=== PATIENT | male | born 1950 | race Hispanic/Latino ===

== ENCOUNTER 2018-10-14 12:36 | Outpatient (RCR) | payer OTHER ==
[~2018-10-14 12:36] MED LIST: AMLODIPINE BESYL5 MG PO; ASPIR 8181 MG PO; ATORVASTATIN CA10 MG PO; ATORVASTATIN CA40 MG PO; BENICAR HCT 401 EACH PO; CIPRO500 MG PO; DOXYCYCLINE HY100 MG PO; FUROSEMIDE20 MG PO; METAGLIP PO; METFORMIN HCL500 MG PO; METOPROLOL SUCC50 MG PO; NIFEDICAL XL30 MG PO; PLAVIX75 MG PO; TYLENOL WITH C1 EACH PO
[2018-10-14] MEDS ORDERED: LIDOCAINE/PRILOCAINE 2.5-2.5% KIT ONE (13:22)
[2018-10-14 13:48] LABS: BASOPHILS % 0.4 % (0.0-1.0); EOSINOPHILS % 0.4 % (0.0-6.0); HEMATOCRIT 30.5 % (38.2-49.6); HEMOGLOBIN 9.9 g/dL (14.0-18.0); LYMPHOCYTES # (AUTO) 1.2 (1.0-3.2); LYMPHOCYTES % 17.6 % (18.0-39.1); MEAN CORPUSCULAR HEMOGLOBIN 31.3 pg (28-32); MEAN CORPUSCULAR HGB CONC 32.5 g/dL (31-35); MEAN CORPUSCULAR VOLUME 96.5 fL (81-99); MONOCYTES # (AUTO) 0.8 (0.2-0.8); MONOCYTES % 11.4 % (4.4-11.3); NEUTROPHILS # (AUTO) 4.8 (2.1-6.9); NEUTROPHILS % 69.9 % (38.7-80.0); PLATELET COUNT 227 x10e3/uL (140-360); RED BLOOD COUNT 3.16 x10e6/uL (4.3-5.7)
[2018-10-14 14:00] LABS: ALBUMIN 3.4 g/dL (3.5-5.0); ALBUMIN/GLOBULIN RATIO 0.9 (0.8-2.0); CALCIUM 9.4 mg/dL (8.4-10.2); CREATININE, SERUM 1.55 mg/dL (0.72-1.25)
[2018-10-14 14:22] LABS: ERYTHROCYTE SEDIMENTATION RATE 107 mm/hr (0-13)
== END 2018-10-15 ==
LOC: WCC 12:36
PROVIDERS: ATTEND Family Medicine Adult Medicine
DX: E11.621 Type 2 diabetes mellitus with foot ulcer (principal); L97.429 Non-pressure chronic ulcer of left heel and midfoot with unspecified severity; I73.9 Peripheral vascular disease, unspecified; I87.2 Venous insufficiency (chronic) (peripheral); R60.0 Localized edema; L84 Corns and callosities; I10 Essential (primary) hypertension; E78.00 Pure hypercholesterolemia, unspecified
CPT/HCPCS: 36415; 80053; 82948; 83036; 84134; 85025; 85651; 86140

== ENCOUNTER 2018-11-02 09:47 | Outpatient (RCR) | payer OTHER ==
[~2018-11-02 09:47] MED LIST changes: +LIDOCAINE/PRILOCAINE 2.5-2.5% KIT ONE
[2018-11-08] MEDS ORDERED: GLIPIZIDE5 MG PO (12:39)
[2018-11-08] MEDS ORDERED: FUROSEMIDE40 MG PO (12:39)
[2018-11-08] MEDS ORDERED: HYDRALAZINE HCL50 MG PO (12:39)
[2018-11-08] MEDS ORDERED: BENICAR HCT 201 EACH PO (12:39)
[2018-11-08] MEDS ORDERED: CLOPIDOGREL75 MG PO (12:39)
[2018-11-08] MEDS ORDERED: CLONIDINE HCL0.1 MG PO (12:39)
[2018-11-08] MEDS ORDERED: CILOSTAZOL100 MG PO (12:39)
[2018-11-08] MEDS ORDERED: AMLODIPINE BESY10 MG PO (12:39)
== END 2018-11-15 ==
LOC: WCC 09:47
PROVIDERS: ATTEND Family Medicine Adult Medicine
DX: E11.621 Type 2 diabetes mellitus with foot ulcer (principal); L97.429 Non-pressure chronic ulcer of left heel and midfoot with unspecified severity; M86.672 Other chronic osteomyelitis, left ankle and foot; I73.9 Peripheral vascular disease, unspecified; I87.2 Venous insufficiency (chronic) (peripheral); M84.478A Pathological fracture, left toe(s), initial encounter for fracture; L84 Corns and callosities; R60.0 Localized edema; I10 Essential (primary) hypertension; B96.89 Other specified bacterial agents as the cause of diseases classified elsewhere; E78.00 Pure hypercholesterolemia, unspecified
CPT/HCPCS: 36415; 82948; 87071; 87075; 87186; 87205

== ENCOUNTER 2018-11-08 11:12 | Observation (INO) | payer OTHER ==
[2018-11-05 14:27] LABS: BASOPHILS % 0.7 % (0.0-1.0); EOSINOPHILS # (AUTO) 0.3 (0.0-0.4); EOSINOPHILS % 4.4 % (0.0-6.0); HEMATOCRIT 32.3 % (38.2-49.6); HEMOGLOBIN 10.4 g/dL (14.0-18.0); MEAN CORPUSCULAR HGB CONC 32.2 g/dL (31-35); MEAN CORPUSCULAR VOLUME 99.4 fL (81-99); MONOCYTES # (AUTO) 0.7 (0.2-0.8); MONOCYTES % 11.4 % (4.4-11.3); NEUTROPHILS # (AUTO) 3.8 (2.1-6.9); PLATELET COUNT 216 x10e3/uL (140-360); RED BLOOD COUNT 3.25 x10e6/uL (4.3-5.7); RED CELL DISTRIBUTION WIDTH 15.7 % (11.7-14.4)
[2018-11-05 14:40] LABS: ALBUMIN 3.4 g/dL (3.5-5.0); CALCIUM 8.9 mg/dL (8.4-10.2); CHOL/HDL RATIO 4.8 (3.9-4.7); CREATININE, SERUM 1.6 mg/dL (0.72-1.25)
[~2018-11-08] VITALS: Ht 170.2 cm; Wt 71.7 kg
[~2018-11-08 11:12] MED LIST changes: -LIDOCAINE/PRILOCAINE 2.5-2.5% KIT ONE
--- OUTSIDE RECORDS SUMMARY | 2018-11-08 11:14 | XMS REPORT ---
Author Author [facility] Address Unknown Phone Unavailable Care Team Providers Care Refueling Rampman Name Role Phone Unavailable Unavailable Problems This patient has no known problems. Allergies, Adverse Reactions, Alerts This patient has no known allergies or adverse reactions. Medications This patient has no known medications.
--- NOTE | 2018-11-08 11:50 | NUR ---
Patient admitted to [facility] with son Cameronlina Siddiqi at bedside. Patient awake, alert, and oriented x3. Respirations even and unlabored on room air. No distress noted. Attractions Associate offered. Patient request geovanni Sol to translate into German. Patient prepped in usual manner for procedure.
[2018-11-08 11:54] VITALS: BP 133/66
[2018-11-08] MEDS ORDERED: ALPRAZOLAM 0.5 MG TAB ONE (12:01)
[2018-11-08] MEDS ORDERED: DIPHENHYDRAMINE HCL 25 MG CAP ONE (12:02)
[2018-11-08] MEDS ORDERED: GLIPIZIDE5 MG PO (12:39)
[2018-11-08] MEDS ORDERED: CLONIDINE HCL0.1 MG PO (12:39)
[2018-11-08] MEDS ORDERED: FUROSEMIDE40 MG PO (12:39)
[2018-11-08] MEDS ORDERED: CILOSTAZOL100 MG PO (12:39)
[2018-11-08] MEDS ORDERED: CLOPIDOGREL75 MG PO (12:39)
[2018-11-08] MEDS ORDERED: AMLODIPINE BESY10 MG PO (12:39)
[2018-11-08] MEDS ORDERED: HYDRALAZINE HCL50 MG PO (12:39)
[2018-11-08] MEDS ORDERED: BENICAR HCT 201 EACH PO (12:39)
[2018-11-08] MEDS ORDERED: LIDOCAINE HCL 2% LOCAL 20 ML VIAL ONE (14:50)
[2018-11-08] MEDS ORDERED: HEPARIN SOD/SOD CHLORIDE 2,000 ML ONE (14:50)
[2018-11-08] MEDS ORDERED: SODIUM CHLORIDE 0.9% 1000ML 1,000 ML ONE ×2 (14:51→14:57)
[2018-11-08] MEDS ORDERED: IOPAMIDOL 300MG/ML 100 ML INFUS..BTL IV ONE (14:51)
[2018-11-08] MEDS ORDERED: VERAPAMIL HCL 2.5 MG/ML 2 ML VIAL ONE (14:56)
[2018-11-08] MEDS ORDERED: MIDAZOLAM HCL 2 MG/2 ML VIAL ONE (14:56)
[2018-11-08] MEDS ORDERED: FENTANYL CITRATE/PF 100MCG/2 ML INJ ONE (14:57)
[2018-11-08] MEDS ORDERED: PROTAMINE SULFATE 10 MG/ML 5 ML VIAL ONE ×2 (15:21→15:22)
[2018-11-08 16:21] VITALS: BP 138/62
--- NOTE | 2018-11-08 16:25 | Operative Report ---
DATE OF PROCEDURE: November 08, 2018 INDICATIONS: Peripheral arterial disease with ulceration of the right lower extremity. PROCEDURES PERFORMED: 1. Abdominal aortogram. 2. Unilateral extremity angiogram with third-order catheter placement from the left femoral artery to the right superficial femoral artery. 3. Additional 3rd-order catheter placement from the left femoral artery to the right anterior tibial artery with additional vessel angiogram. 4. Atherectomy and drug-coated balloon angioplasty of the right femoral artery. 5. Secondary thrombectomy of the right femoral artery. COMPLICATIONS: None. RECOMMENDATIONS: Medical therapy including wound care. Access obtained in the left femoral artery. A 6-Czech sheath was placed. Abdominal aortogram demonstrated moderate plaque without critical stenosis, occlusion of the iliac and abdominal aorta and the right femoral artery proximally appeared widely patent. Distal vessel could not be seen. The catheter was then advanced from the left femoral artery to the right superficial femoral artery confirming 90% tandem stenosis of the right distal femoral artery. Infrapopliteal vessels were not well seen. The catheter was then advanced from the left femoral artery to the right anterior tibial artery confirming 2 vessel runoff via the anterior tibial and peroneal artery. The peroneal artery was diffusely diseased. Posterior tibial artery was occluded. A decision was made to intervene on the right femoral artery. The patient received 8000 units of intravenous heparin. The sheath was exchanged to a 45 cm 6-Czech sheath advanced from the left femoral artery to the right superficial femoral artery. Lesion was crossed using a ViperWire. Orbital atherectomy using a 2 mm was performed. Large amounts of visible thrombus necessitating manual aspiration thrombectomy following which a 6 x 150 mm Lutonix drug-eluting balloon was deployed. Excellent end result. Two-vessel runoff less than 10% residual stenosis. No complications. Left groin sheath removed under manual pressure. Patient discharged home same day. Job#: [id number]
--- NOTE | 2018-11-08 16:30 | NUR ---
PT ARRIVED VIA STRETCHER, RESP EVEN AND UNLABORED AT THIS TIME, PT GROIN SITE CLEAN AND INTACT, NO HEMATOMA NO REDNESS TO SITE, NO C/O PAIN WHEN ASKED. PT ORIENTED TO ROOM AND CALL LIGHT. PT TO LIE SUPINE UNTIL 1935.
[2018-11-08 17:16] VITALS: BP 133/66
--- NOTE | 2018-11-08 19:19 | NUR ---
REPORT GIVEN TO ONCOMING NURSE
== END 2018-11-08 20:50 | disposition home or self-care (01) ==
LOC: CATH LAB 11:12 → CATH LAB V 16:09 → IMCU 16:31
PROVIDERS: ADMIT Internal Medicine Interventional Cardiology; ATTEND Internal Medicine Interventional Cardiology
DX: I70.4 Atherosclerosis of autologous vein bypass graft(s) of the extremities (principal); R00.0 Tachycardia, unspecified; E11.9 Type 2 diabetes mellitus without complications; I10 Essential (primary) hypertension; F17.210 Nicotine dependence, cigarettes, uncomplicated; Z79.84 Long term (current) use of oral hypoglycemic drugs; Z79.82 Long term (current) use of aspirin
CPT/HCPCS: 36415 ×2; 37186; 37225; 75625; 75710; 80053; 80061; 82948; 85025; C1724; C1725; C1769; C1887; C2623; G0378; J2001; J2250; J2720; J7030; Q9967; 36247

== ENCOUNTER → 2018-12-16 | Outpatient (RCR) | payer OTHER ==
[~2018-12-16] MED LIST changes: +AMLODIPINE BESY10 MG PO; +BENICAR HCT 201 EACH PO; +CILOSTAZOL100 MG PO; +CLONIDINE HCL0.1 MG PO; +CLOPIDOGREL75 MG PO; +FUROSEMIDE40 MG PO; +GLIPIZIDE5 MG PO; +HYDRALAZINE HCL50 MG PO; +LIDOCAINE/PRILOCAINE 2.5-2.5% KIT ONE
== END ==
LOC: WCC 12-09 11:28
PROVIDERS: ATTEND Family Medicine Adult Medicine
DX: T81.89XA Other complications of procedures, not elsewhere classified, initial encounter (principal); M96.89 Other intraoperative and postprocedural complications and disorders of the musculoskeletal system; M86.672 Other chronic osteomyelitis, left ankle and foot; E11.621 Type 2 diabetes mellitus with foot ulcer; L97.421 Non-pressure chronic ulcer of left heel and midfoot limited to breakdown of skin; L97.429 Non-pressure chronic ulcer of left heel and midfoot with unspecified severity; R60.0 Localized edema; B96.89 Other specified bacterial agents as the cause of diseases classified elsewhere; M84.478A Pathological fracture, left toe(s), initial encounter for fracture; I73.9 Peripheral vascular disease, unspecified; I87.2 Venous insufficiency (chronic) (peripheral); L84 Corns and callosities; I10 Essential (primary) hypertension; E78.00 Pure hypercholesterolemia, unspecified

== ENCOUNTER 2018-12-23 10:58 | Outpatient (RCR) | payer MEDICARE ==
[~2018-12-23 10:58] MED LIST changes: -LIDOCAINE/PRILOCAINE 2.5-2.5% KIT ONE
[2018-12-23] MEDS ORDERED: LIDOCAINE/PRILOCAINE 2.5-2.5% KIT ONE (15:12)
[2018-12-30] MEDS ORDERED: LIDOCAINE/PRILOCAINE 2.5-2.5% KIT ONE (15:23)
== END 2019-01-13 ==
LOC: WCC 10:58
PROVIDERS: ATTEND Family Medicine Adult Medicine
DX: T81.89XA Other complications of procedures, not elsewhere classified, initial encounter (principal); M96.89 Other intraoperative and postprocedural complications and disorders of the musculoskeletal system; M86.672 Other chronic osteomyelitis, left ankle and foot; E11.621 Type 2 diabetes mellitus with foot ulcer; L97.421 Non-pressure chronic ulcer of left heel and midfoot limited to breakdown of skin; I73.9 Peripheral vascular disease, unspecified; I87.2 Venous insufficiency (chronic) (peripheral); I10 Essential (primary) hypertension; M84.478A Pathological fracture, left toe(s), initial encounter for fracture; B96.89 Other specified bacterial agents as the cause of diseases classified elsewhere; E78.00 Pure hypercholesterolemia, unspecified

== ENCOUNTER 2019-02-10 09:14 | Outpatient (RCR) | payer MEDICARE ==
[~2019-02-10 09:14] MED LIST changes: +LIDOCAINE/PRILOCAINE 2.5-2.5% KIT ONE
[2019-02-10] MEDS ORDERED: LIDOCAINE/PRILOCAINE 2.5-2.5% KIT ONE (12:53)
== END 2019-02-13 ==
LOC: WCC 09:14
PROVIDERS: ATTEND Family Medicine Adult Medicine
DX: T81.89XA Other complications of procedures, not elsewhere classified, initial encounter (principal); M96.89 Other intraoperative and postprocedural complications and disorders of the musculoskeletal system; M86.672 Other chronic osteomyelitis, left ankle and foot; E11.621 Type 2 diabetes mellitus with foot ulcer; L97.421 Non-pressure chronic ulcer of left heel and midfoot limited to breakdown of skin; I73.9 Peripheral vascular disease, unspecified; I87.2 Venous insufficiency (chronic) (peripheral); I10 Essential (primary) hypertension; B96.89 Other specified bacterial agents as the cause of diseases classified elsewhere; E78.00 Pure hypercholesterolemia, unspecified; M84.478A Pathological fracture, left toe(s), initial encounter for fracture

== ENCOUNTER 2019-03-10 11:32 | Outpatient (RCR) | payer MEDICARE ==
[2019-03-10] MEDS ORDERED: LIDOCAINE/PRILOCAINE 2.5-2.5% KIT ONE (18:01)
== END 2019-03-15 ==
LOC: WCC 11:32
PROVIDERS: ATTEND Family Medicine Adult Medicine
DX: T81.89XA Other complications of procedures, not elsewhere classified, initial encounter (principal); M96.89 Other intraoperative and postprocedural complications and disorders of the musculoskeletal system; M86.672 Other chronic osteomyelitis, left ankle and foot; E11.621 Type 2 diabetes mellitus with foot ulcer; L97.421 Non-pressure chronic ulcer of left heel and midfoot limited to breakdown of skin; L03.039 Cellulitis of unspecified toe; S91.202A Unspecified open wound of left great toe with damage to nail, initial encounter; I73.9 Peripheral vascular disease, unspecified; I87.2 Venous insufficiency (chronic) (peripheral); M84.478A Pathological fracture, left toe(s), initial encounter for fracture; I10 Essential (primary) hypertension; B96.89 Other specified bacterial agents as the cause of diseases classified elsewhere; E78.00 Pure hypercholesterolemia, unspecified; X58.XXXA Exposure to other specified factors, initial encounter
CPT/HCPCS: 87071; 87075; 87205

== ENCOUNTER 2019-03-24 10:00 | Outpatient (RCR) | payer MEDICARE ==
[~2019-03-24 10:00] MED LIST changes: -LIDOCAINE/PRILOCAINE 2.5-2.5% KIT ONE
== END 2019-04-15 ==
LOC: WCC 10:00
PROVIDERS: ATTEND Family Medicine Adult Medicine
DX: T81.89XA Other complications of procedures, not elsewhere classified, initial encounter (principal); M96.89 Other intraoperative and postprocedural complications and disorders of the musculoskeletal system; M86.672 Other chronic osteomyelitis, left ankle and foot; E11.621 Type 2 diabetes mellitus with foot ulcer; L97.421 Non-pressure chronic ulcer of left heel and midfoot limited to breakdown of skin; S91.202A Unspecified open wound of left great toe with damage to nail, initial encounter; I73.9 Peripheral vascular disease, unspecified; I87.2 Venous insufficiency (chronic) (peripheral); I10 Essential (primary) hypertension; X58.XXXA Exposure to other specified factors, initial encounter; M84.478A Pathological fracture, left toe(s), initial encounter for fracture; E78.00 Pure hypercholesterolemia, unspecified; B96.89 Other specified bacterial agents as the cause of diseases classified elsewhere
CPT/HCPCS: 36415; 82948; 87071; 87075; 87186; 87205

== ENCOUNTER 2019-05-03 09:05 | Outpatient (RCR) | payer MEDICARE | END 2019-05-15 | LOC: WCC 09:05 | PROVIDERS: ATTEND Family Medicine Adult Medicine | DX: T81.89XA Other complications of procedures, not elsewhere classified, initial encounter (principal); M96.89 Other intraoperative and postprocedural complications and disorders of the musculoskeletal system; M86.672 Other chronic osteomyelitis, left ankle and foot; E11.621 Type 2 diabetes mellitus with foot ulcer; L97.421 Non-pressure chronic ulcer of left heel and midfoot limited to breakdown of skin; S91.202A Unspecified open wound of left great toe with damage to nail, initial encounter; M84.478A Pathological fracture, left toe(s), initial encounter for fracture; I87.2 Venous insufficiency (chronic) (peripheral); I73.9 Peripheral vascular disease, unspecified; X58.XXXA Exposure to other specified factors, initial encounter; I10 Essential (primary) hypertension; E78.00 Pure hypercholesterolemia, unspecified; B96.89 Other specified bacterial agents as the cause of diseases classified elsewhere | CPT/HCPCS: 36415; 82948 ==

== ENCOUNTER → 2019-05-24 | Outpatient (CLI) | payer MEDICARE ==
[~2019-05-24] MED LIST changes: +LIDOCAINE/PRILOCAINE 2.5-2.5% KIT ONE; +MINERAL OIL/PETROLAT/GLYCERI 2OZ CRM ONE
== END ==
LOC: WCC 15:26
PROVIDERS: ATTEND Family Medicine Adult Medicine
DX: T81.89XA Other complications of procedures, not elsewhere classified, initial encounter (principal); M96.89 Other intraoperative and postprocedural complications and disorders of the musculoskeletal system; M86.672 Other chronic osteomyelitis, left ankle and foot; E11.621 Type 2 diabetes mellitus with foot ulcer; L97.421 Non-pressure chronic ulcer of left heel and midfoot limited to breakdown of skin; S91.202A Unspecified open wound of left great toe with damage to nail, initial encounter; I87.2 Venous insufficiency (chronic) (peripheral); S90.822A Blister (nonthermal), left foot, initial encounter; I73.9 Peripheral vascular disease, unspecified; M84.478A Pathological fracture, left toe(s), initial encounter for fracture; I10 Essential (primary) hypertension; B96.89 Other specified bacterial agents as the cause of diseases classified elsewhere; E78.00 Pure hypercholesterolemia, unspecified; X58.XXXA Exposure to other specified factors, initial encounter

== ENCOUNTER 2019-06-14 11:24 | Outpatient (RCR) | payer MEDICARE ==
[~2019-06-14 11:24] MED LIST changes: -LIDOCAINE/PRILOCAINE 2.5-2.5% KIT ONE; -MINERAL OIL/PETROLAT/GLYCERI 2OZ CRM ONE
== END 2019-06-15 ==
LOC: WCC 11:24
PROVIDERS: ATTEND Family Medicine Adult Medicine
DX: T81.89XA Other complications of procedures, not elsewhere classified, initial encounter (principal); M96.89 Other intraoperative and postprocedural complications and disorders of the musculoskeletal system; M86.672 Other chronic osteomyelitis, left ankle and foot; E11.621 Type 2 diabetes mellitus with foot ulcer; L97.421 Non-pressure chronic ulcer of left heel and midfoot limited to breakdown of skin; S91.202A Unspecified open wound of left great toe with damage to nail, initial encounter; S90.822A Blister (nonthermal), left foot, initial encounter; I73.9 Peripheral vascular disease, unspecified; I87.2 Venous insufficiency (chronic) (peripheral); M84.478A Pathological fracture, left toe(s), initial encounter for fracture; I10 Essential (primary) hypertension; B96.89 Other specified bacterial agents as the cause of diseases classified elsewhere; E78.00 Pure hypercholesterolemia, unspecified; X58.XXXA Exposure to other specified factors, initial encounter
CPT/HCPCS: 87071; 87075; 87186; 87205

== ENCOUNTER 2019-07-05 10:56 | Outpatient (RCR) | payer MEDICARE ==
[2019-07-05] MEDS ORDERED: LIDOCAINE/PRILOCAINE 2.5-2.5% KIT ONE (16:58)
== END 2019-07-16 ==
LOC: WCC 10:56
PROVIDERS: ATTEND Family Medicine Adult Medicine
DX: E11.621 Type 2 diabetes mellitus with foot ulcer (principal); M96.89 Other intraoperative and postprocedural complications and disorders of the musculoskeletal system; M86.672 Other chronic osteomyelitis, left ankle and foot; S91.202A Unspecified open wound of left great toe with damage to nail, initial encounter; I87.2 Venous insufficiency (chronic) (peripheral); I73.9 Peripheral vascular disease, unspecified; M84.478A Pathological fracture, left toe(s), initial encounter for fracture; I10 Essential (primary) hypertension; B96.89 Other specified bacterial agents as the cause of diseases classified elsewhere; E78.00 Pure hypercholesterolemia, unspecified; X58.XXXA Exposure to other specified factors, initial encounter
CPT/HCPCS: 36415; 82948

== ENCOUNTER 2019-08-11 09:11 | Outpatient (RCR) | payer MEDICARE ==
[~2019-08-11 09:11] MED LIST changes: +LIDOCAINE/PRILOCAINE 2.5-2.5% KIT ONE
[2019-08-11] MEDS ORDERED: LIDOCAINE/PRILOCAINE 2.5-2.5% KIT ONE (14:36)
== END 2019-08-15 ==
LOC: WCC 09:11
PROVIDERS: ATTEND Family Medicine Adult Medicine
DX: E11.621 Type 2 diabetes mellitus with foot ulcer (principal); M86.672 Other chronic osteomyelitis, left ankle and foot; M96.89 Other intraoperative and postprocedural complications and disorders of the musculoskeletal system; S91.202A Unspecified open wound of left great toe with damage to nail, initial encounter; I73.9 Peripheral vascular disease, unspecified; I87.2 Venous insufficiency (chronic) (peripheral); M84.478A Pathological fracture, left toe(s), initial encounter for fracture; I10 Essential (primary) hypertension; A49.01 Methicillin susceptible Staphylococcus aureus infection, unspecified site; B96.89 Other specified bacterial agents as the cause of diseases classified elsewhere; E78.00 Pure hypercholesterolemia, unspecified; X58.XXXA Exposure to other specified factors, initial encounter

== ENCOUNTER → 2019-09-15 | Outpatient (RCR) | payer MEDICARE | LOC: WCC 13:54 | PROVIDERS: ATTEND Family Medicine Adult Medicine | DX: E11.621 Type 2 diabetes mellitus with foot ulcer (principal); E11.22 Type 2 diabetes mellitus with diabetic chronic kidney disease; M96.89 Other intraoperative and postprocedural complications and disorders of the musculoskeletal system; M86.672 Other chronic osteomyelitis, left ankle and foot; S91.202A Unspecified open wound of left great toe with damage to nail, initial encounter; I73.9 Peripheral vascular disease, unspecified; I87.2 Venous insufficiency (chronic) (peripheral); N18.3 Chronic kidney disease, stage 3 (moderate); I10 Essential (primary) hypertension; A49.01 Methicillin susceptible Staphylococcus aureus infection, unspecified site; B96.89 Other specified bacterial agents as the cause of diseases classified elsewhere; E78.00 Pure hypercholesterolemia, unspecified; M84.478A Pathological fracture, left toe(s), initial encounter for fracture; X58.XXXA Exposure to other specified factors, initial encounter | CPT/HCPCS: 36415; 82948 ==

== ENCOUNTER 2019-10-11 09:50 | Outpatient (RCR) | payer MEDICARE ==
[2019-10-11] MEDS ORDERED: LIDOCAINE/PRILOCAINE 2.5-2.5% KIT ONE (15:01)
== END 2019-10-15 ==
LOC: WCC 09:50
PROVIDERS: ATTEND Family Medicine Adult Medicine
DX: E11.22 Type 2 diabetes mellitus with diabetic chronic kidney disease (principal); E11.621 Type 2 diabetes mellitus with foot ulcer; M96.89 Other intraoperative and postprocedural complications and disorders of the musculoskeletal system; M84.478A Pathological fracture, left toe(s), initial encounter for fracture; I73.9 Peripheral vascular disease, unspecified; I87.2 Venous insufficiency (chronic) (peripheral); N18.3 Chronic kidney disease, stage 3 (moderate); I10 Essential (primary) hypertension; B96.89 Other specified bacterial agents as the cause of diseases classified elsewhere; E78.00 Pure hypercholesterolemia, unspecified; X58.XXXA Exposure to other specified factors, initial encounter
CPT/HCPCS: 36415; 82948; 87071; 87186; 87205

== ENCOUNTER 2020-01-13 13:43 | Outpatient (RCR) | payer MEDICARE ==
[~2020-01-13 13:43] MED LIST changes: -LIDOCAINE/PRILOCAINE 2.5-2.5% KIT ONE; +MINERAL OIL/PETROLAT/GLYCERI 6OZ BTL ONE
== END 2020-01-14 ==
LOC: WCC 13:43
PROVIDERS: ATTEND Internal Medicine Infectious Disease
DX: T86.821 Skin graft (allograft) (autograft) failure (principal); M96.89 Other intraoperative and postprocedural complications and disorders of the musculoskeletal system; E11.22 Type 2 diabetes mellitus with diabetic chronic kidney disease; E11.621 Type 2 diabetes mellitus with foot ulcer; B96.89 Other specified bacterial agents as the cause of diseases classified elsewhere; I73.9 Peripheral vascular disease, unspecified; I87.2 Venous insufficiency (chronic) (peripheral); M84.478A Pathological fracture, left toe(s), initial encounter for fracture; N18.3 Chronic kidney disease, stage 3 (moderate); I10 Essential (primary) hypertension; E78.00 Pure hypercholesterolemia, unspecified; X58.XXXA Exposure to other specified factors, initial encounter; Z01.810 Encounter for preprocedural cardiovascular examination; Z01.811 Encounter for preprocedural respiratory examination; Z89.412 Acquired absence of left great toe
CPT/HCPCS: 36415; 82948

== ENCOUNTER 2020-02-07 12:28 | Outpatient (RCR) | payer MEDICARE ==
[~2020-02-07 12:28] MED LIST changes: -MINERAL OIL/PETROLAT/GLYCERI 6OZ BTL ONE
== END 2020-02-14 ==
LOC: WCC 12:28
PROVIDERS: ATTEND Family Medicine Adult Medicine
DX: T86.821 Skin graft (allograft) (autograft) failure (principal); E11.22 Type 2 diabetes mellitus with diabetic chronic kidney disease; M96.89 Other intraoperative and postprocedural complications and disorders of the musculoskeletal system; E11.621 Type 2 diabetes mellitus with foot ulcer; N18.3 Chronic kidney disease, stage 3 (moderate); I87.2 Venous insufficiency (chronic) (peripheral); I73.9 Peripheral vascular disease, unspecified; M84.478A Pathological fracture, left toe(s), initial encounter for fracture; I10 Essential (primary) hypertension; X58.XXXA Exposure to other specified factors, initial encounter; E78.00 Pure hypercholesterolemia, unspecified; B96.89 Other specified bacterial agents as the cause of diseases classified elsewhere; Z01.810 Encounter for preprocedural cardiovascular examination; Z01.811 Encounter for preprocedural respiratory examination

== ENCOUNTER 2020-03-13 11:44 | Outpatient (RCR) | payer MEDICARE | END 2020-03-15 | LOC: WCC 11:44 | PROVIDERS: ATTEND Family Medicine Adult Medicine | DX: T86.821 Skin graft (allograft) (autograft) failure (principal); M96.89 Other intraoperative and postprocedural complications and disorders of the musculoskeletal system; E11.22 Type 2 diabetes mellitus with diabetic chronic kidney disease; E11.621 Type 2 diabetes mellitus with foot ulcer; I73.9 Peripheral vascular disease, unspecified; I87.2 Venous insufficiency (chronic) (peripheral); M84.478A Pathological fracture, left toe(s), initial encounter for fracture; B96.89 Other specified bacterial agents as the cause of diseases classified elsewhere; N18.3 Chronic kidney disease, stage 3 (moderate); I10 Essential (primary) hypertension; E78.00 Pure hypercholesterolemia, unspecified; X58.XXXA Exposure to other specified factors, initial encounter; Z01.810 Encounter for preprocedural cardiovascular examination; Z01.811 Encounter for preprocedural respiratory examination | CPT/HCPCS: 36415; 82948 ==

== ENCOUNTER 2020-04-03 13:13 | Outpatient (RCR) | payer MEDICARE | END 2020-04-15 | LOC: WCC 13:13 | PROVIDERS: ATTEND Family Medicine Adult Medicine | DX: T86.821 Skin graft (allograft) (autograft) failure (principal); E11.22 Type 2 diabetes mellitus with diabetic chronic kidney disease; E11.621 Type 2 diabetes mellitus with foot ulcer; M96.89 Other intraoperative and postprocedural complications and disorders of the musculoskeletal system; I73.9 Peripheral vascular disease, unspecified; I87.2 Venous insufficiency (chronic) (peripheral); N18.3 Chronic kidney disease, stage 3 (moderate); M84.478A Pathological fracture, left toe(s), initial encounter for fracture; I10 Essential (primary) hypertension; B96.89 Other specified bacterial agents as the cause of diseases classified elsewhere; E78.00 Pure hypercholesterolemia, unspecified; X58.XXXA Exposure to other specified factors, initial encounter; Z01.810 Encounter for preprocedural cardiovascular examination; Z01.811 Encounter for preprocedural respiratory examination ==

== ENCOUNTER → 2020-05-15 | Outpatient (RCR) | payer MEDICARE | LOC: WCC 04-24 10:59 | PROVIDERS: ATTEND Family Medicine Adult Medicine | DX: T86.821 Skin graft (allograft) (autograft) failure (principal); M96.89 Other intraoperative and postprocedural complications and disorders of the musculoskeletal system; E11.22 Type 2 diabetes mellitus with diabetic chronic kidney disease; E11.621 Type 2 diabetes mellitus with foot ulcer; I73.9 Peripheral vascular disease, unspecified; I87.2 Venous insufficiency (chronic) (peripheral); M84.478A Pathological fracture, left toe(s), initial encounter for fracture; B96.89 Other specified bacterial agents as the cause of diseases classified elsewhere; N18.3 Chronic kidney disease, stage 3 (moderate); I10 Essential (primary) hypertension; E78.00 Pure hypercholesterolemia, unspecified; X58.XXXA Exposure to other specified factors, initial encounter; Z01.810 Encounter for preprocedural cardiovascular examination; Z01.811 Encounter for preprocedural respiratory examination ==

== ENCOUNTER 2020-06-05 09:54 | Outpatient (RCR) | payer MEDICARE | END 2020-06-15 | LOC: WCC 09:54 | PROVIDERS: ATTEND Family Medicine Adult Medicine | DX: T86.821 Skin graft (allograft) (autograft) failure (principal); M96.89 Other intraoperative and postprocedural complications and disorders of the musculoskeletal system; E11.22 Type 2 diabetes mellitus with diabetic chronic kidney disease; E11.621 Type 2 diabetes mellitus with foot ulcer; I73.9 Peripheral vascular disease, unspecified; I87.2 Venous insufficiency (chronic) (peripheral); N18.3 Chronic kidney disease, stage 3 (moderate); I10 Essential (primary) hypertension; M84.478A Pathological fracture, left toe(s), initial encounter for fracture; B96.89 Other specified bacterial agents as the cause of diseases classified elsewhere; E78.00 Pure hypercholesterolemia, unspecified; X58.XXXA Exposure to other specified factors, initial encounter; Z01.810 Encounter for preprocedural cardiovascular examination; Z01.811 Encounter for preprocedural respiratory examination ==

== ENCOUNTER 2020-07-03 10:44 | Outpatient (RCR) | payer MEDICARE ==
[~2020-07-03 10:44] MED LIST changes: +LIDOCAINE VISC 2% SOLN 15 ML UDC ONE; +MINERAL OIL/PETROLAT/GLYCERI 6OZ BTL ONE
== END 2020-07-16 ==
LOC: WCC 10:44
PROVIDERS: ATTEND Family Medicine Adult Medicine
DX: T86.821 Skin graft (allograft) (autograft) failure (principal); E11.22 Type 2 diabetes mellitus with diabetic chronic kidney disease; E11.621 Type 2 diabetes mellitus with foot ulcer; M96.89 Other intraoperative and postprocedural complications and disorders of the musculoskeletal system; I73.9 Peripheral vascular disease, unspecified; I87.2 Venous insufficiency (chronic) (peripheral); N18.3 Chronic kidney disease, stage 3 (moderate); M84.478A Pathological fracture, left toe(s), initial encounter for fracture; I10 Essential (primary) hypertension; B96.89 Other specified bacterial agents as the cause of diseases classified elsewhere; E78.00 Pure hypercholesterolemia, unspecified; X58.XXXA Exposure to other specified factors, initial encounter; Z01.810 Encounter for preprocedural cardiovascular examination; Z01.811 Encounter for preprocedural respiratory examination

== ENCOUNTER 2020-08-14 09:41 | Outpatient (RCR) | payer MEDICARE ==
[~2020-08-14 09:41] MED LIST changes: -LIDOCAINE VISC 2% SOLN 15 ML UDC ONE; +LIDOCAINE/PRILOCAINE 2.5-2.5% KIT ONE; -MINERAL OIL/PETROLAT/GLYCERI 6OZ BTL ONE; +MUPIROCIN 2% OINT 22 GM TUBE ONE
[2020-08-14] MEDS ORDERED: AMMONIUM LACTATE 12% LOTION 225GM BTL ONE (16:36)
[2020-08-14] MEDS ORDERED: LIDOCAINE VISC 2% SOLN 15 ML UDC ONE (16:36)
== END 2020-08-15 ==
LOC: WCC 09:41
PROVIDERS: ATTEND Family Medicine Adult Medicine
DX: T86.821 Skin graft (allograft) (autograft) failure (principal); E11.22 Type 2 diabetes mellitus with diabetic chronic kidney disease; E11.621 Type 2 diabetes mellitus with foot ulcer; I73.9 Peripheral vascular disease, unspecified; I87.2 Venous insufficiency (chronic) (peripheral); B96.89 Other specified bacterial agents as the cause of diseases classified elsewhere; N18.3 Chronic kidney disease, stage 3 (moderate); M84.478A Pathological fracture, left toe(s), initial encounter for fracture; I10 Essential (primary) hypertension; E78.00 Pure hypercholesterolemia, unspecified; M96.89 Other intraoperative and postprocedural complications and disorders of the musculoskeletal system; X58.XXXA Exposure to other specified factors, initial encounter; Z01.810 Encounter for preprocedural cardiovascular examination; Z01.811 Encounter for preprocedural respiratory examination
CPT/HCPCS: 87071; 87075; 87205

== ENCOUNTER 2020-09-11 09:58 | Outpatient (RCR) | payer MEDICARE ==
[~2020-09-11 09:58] MED LIST changes: +MINERAL OIL/PETROLAT/GLYCERI 6OZ BTL ONE; -MUPIROCIN 2% OINT 22 GM TUBE ONE
== END 2020-09-15 ==
LOC: WCC 09:58
PROVIDERS: ATTEND Family Medicine Adult Medicine
DX: T86.821 Skin graft (allograft) (autograft) failure (principal); M96.89 Other intraoperative and postprocedural complications and disorders of the musculoskeletal system; E11.22 Type 2 diabetes mellitus with diabetic chronic kidney disease; E11.621 Type 2 diabetes mellitus with foot ulcer; I73.9 Peripheral vascular disease, unspecified; I87.2 Venous insufficiency (chronic) (peripheral); N18.30 Chronic kidney disease, stage 3 unspecified; L84 Corns and callosities; M84.478A Pathological fracture, left toe(s), initial encounter for fracture; I10 Essential (primary) hypertension; B96.89 Other specified bacterial agents as the cause of diseases classified elsewhere; E78.00 Pure hypercholesterolemia, unspecified; X58.XXXA Exposure to other specified factors, initial encounter; Z01.810 Encounter for preprocedural cardiovascular examination; Z01.811 Encounter for preprocedural respiratory examination
CPT/HCPCS: 36415; 82948

== ENCOUNTER 2020-10-09 15:09 | Outpatient (RCR) | payer MEDICARE ==
[~2020-10-09 15:09] MED LIST changes: +LIDOCAINE VISC 2% SOLN 15 ML UDC ONE; -MINERAL OIL/PETROLAT/GLYCERI 6OZ BTL ONE
== END 2020-10-15 ==
LOC: WCC 15:09
PROVIDERS: ATTEND Family Medicine Adult Medicine
DX: T86.821 Skin graft (allograft) (autograft) failure (principal); M96.89 Other intraoperative and postprocedural complications and disorders of the musculoskeletal system; E11.22 Type 2 diabetes mellitus with diabetic chronic kidney disease; E11.621 Type 2 diabetes mellitus with foot ulcer; I87.2 Venous insufficiency (chronic) (peripheral); I73.9 Peripheral vascular disease, unspecified; M84.478A Pathological fracture, left toe(s), initial encounter for fracture; N18.30 Chronic kidney disease, stage 3 unspecified; I10 Essential (primary) hypertension; B96.89 Other specified bacterial agents as the cause of diseases classified elsewhere; E78.00 Pure hypercholesterolemia, unspecified; X58.XXXA Exposure to other specified factors, initial encounter; Z01.810 Encounter for preprocedural cardiovascular examination; Z01.811 Encounter for preprocedural respiratory examination
CPT/HCPCS: 36415; 82948

== ENCOUNTER 2020-11-13 11:17 | Outpatient (RCR) | payer MEDICARE ==
[2020-11-13] MEDS ORDERED: LIDOCAINE/PRILOCAINE 2.5-2.5% KIT ONE ×2 (13:48→14:15)
== END 2020-11-15 ==
LOC: WCC 11:17
PROVIDERS: ATTEND Family Medicine Adult Medicine
DX: T86.821 Skin graft (allograft) (autograft) failure (principal); M96.89 Other intraoperative and postprocedural complications and disorders of the musculoskeletal system; E11.22 Type 2 diabetes mellitus with diabetic chronic kidney disease; E11.621 Type 2 diabetes mellitus with foot ulcer; R60.0 Localized edema; I73.9 Peripheral vascular disease, unspecified; I87.2 Venous insufficiency (chronic) (peripheral); M84.478A Pathological fracture, left toe(s), initial encounter for fracture; N18.30 Chronic kidney disease, stage 3 unspecified; I10 Essential (primary) hypertension; B96.89 Other specified bacterial agents as the cause of diseases classified elsewhere; E78.00 Pure hypercholesterolemia, unspecified; X58.XXXA Exposure to other specified factors, initial encounter; Z01.810 Encounter for preprocedural cardiovascular examination; Z01.811 Encounter for preprocedural respiratory examination
CPT/HCPCS: 36415; 82948

== ENCOUNTER 2020-12-11 13:33 | Outpatient (RCR) | payer MEDICARE ==
[~2020-12-11 13:33] MED LIST changes: +MINERAL OIL/PETROLAT/GLYCERI 2OZ CRM ONE
== END 2020-12-16 ==
LOC: WCC 13:33
PROVIDERS: ATTEND Family Medicine Adult Medicine
DX: T86.821 Skin graft (allograft) (autograft) failure (principal); M96.89 Other intraoperative and postprocedural complications and disorders of the musculoskeletal system; E11.22 Type 2 diabetes mellitus with diabetic chronic kidney disease; E11.621 Type 2 diabetes mellitus with foot ulcer; I73.9 Peripheral vascular disease, unspecified; I87.2 Venous insufficiency (chronic) (peripheral); R60.0 Localized edema; M84.478A Pathological fracture, left toe(s), initial encounter for fracture; N18.30 Chronic kidney disease, stage 3 unspecified; I10 Essential (primary) hypertension; B96.89 Other specified bacterial agents as the cause of diseases classified elsewhere; E78.00 Pure hypercholesterolemia, unspecified; X58.XXXA Exposure to other specified factors, initial encounter; Z01.810 Encounter for preprocedural cardiovascular examination; Z01.811 Encounter for preprocedural respiratory examination